=== PATIENT | female | born 1960 | race American Indian/Alaskan Native ===

== ENCOUNTER 2018-01-10 08:19 | Outpatient (CLI) | payer BC ==
--- NOTE | 2018-01-10 14:24 | Cat Scan Report ---
CT ABDOMEN AND PELVIS WITH CONTRAST: 01/10/18 08:19:00 CLINICAL: Pelvic mass. Status post supracervical hysterectomy. COMPARISON: 09/18/17 TECHNIQUE: Volumetric acquisition and 1.25 millimeter scan reconstructions after the uneventful intravenous injection of 100 cc Omnipaque 300. Consent was obtained prior to the administration of contrast. Oral contrast was also given. FINDINGS: Abdomen: Normal size kidneys with normal collecting systems. Normal ureters.Normal liver, bile ducts and gallbladder. Normal stomach, duodenum, pancreas and spleen. Normal aorta and inferior vena cava. Normal adrenal glands. The kidneys are normal except for a 2 cm right upper pole benign renal cyst. The renal collecting systems and ureters are nondilated. Normal small bowel.Normal ascending, transverse and descending colon. Normal appendix. No lymphadenopathy or ascites.No pneumoperitoneum. Pelvis: A stable oval cystic mass in the right upper pelvis inferior to the appendix measures 3.8 x 3.3 x 2.8 cm. No other pelvic mass is identified. The cervical remnant is to the left of midline and was described as a mass of the vaginal cuff on the last exam. No ovaries are identified. Normal urinary bladder. Normal rectum and sigmoid colon.. Bone windows demonstrate no bone lesion. IMPRESSION:1. Status post supracervical hysterectomy with a normal cervical remnant. 2. A stable 4 cm right upper pelvic benign cystic mass. 3. No other mass.
== END 2018-01-10 08:20 | disposition home or self-care (01) ==
LOC: SPVIMAG 08:19
PROVIDERS: ATTEND Obstetrics & Gynecology
DX: N28.1 Cyst of kidney, acquired (principal); N94.89 Other specified conditions associated with female genital organs and menstrual cycle; Z90.710 Acquired absence of both cervix and uterus
CPT/HCPCS: 74177; Q9967

== ENCOUNTER 2019-09-05 08:25 | Outpatient (CLI) | payer BC ==
--- NOTE | 2019-09-05 15:03 | Magnetic Resonance Report ---
BILATERAL BREAST MR WITHOUT AND WITH GADOLINIUM INDICATION: History of a left nipple discharge COMPARISONS: 07/08/2019 and 08/15/2019 mammograms TECHNIQUE: Axial 1.0 mm T1 without, axial high-resolution 2.0 mm T2 and axial 1.0 mm dynamic vibrant high-resolution postcontrast T1 fat saturation sequences on a 1.5 Shannon magnet. The examination was p erformed with an 8-channel dedicated [place] breast coil. Post-processing with CAD and subtraction was performed on an [employer] workstation. 16.0 cc of MultiHance was injected without incident for the c ontrast portion of the exam. Consent was obtained prior to the administration of the contrast. FINDINGS: RIGHT BREAST: Minimal background parenchymal enhancement. No mass or suspicious enhancement. No suspi cious lymph nodes. LEFT BREAST: Minimal background parenchymal enhancement. No mass or suspicious enhancement. No suspic ious lymph nodes. IMPRESSION: Negative study. Recommend routine mammographic screening. BI-RADS Category 1: Negative Signer Name: Sumeet Goodman MD Signed: 09/05/2019 2:59 PM Workstation Name: [id number]
== END 2019-09-05 08:26 | disposition home or self-care (01) ==
LOC: SPVIMAG 08:25
PROVIDERS: ATTEND Surgery
DX: N60.11 Diffuse cystic mastopathy of right breast (principal); N60.12 Diffuse cystic mastopathy of left breast; R92.2 Inconclusive mammogram; N64.4 Mastodynia
CPT/HCPCS: A9577; C8908; 77049

== ENCOUNTER 2021-05-04 12:25 | Outpatient (CLI) | payer BC ==
[2021-05-04 13:14] LABS: Blood Urea Nitrogen 9 mg/dL (7-17)
--- NOTE | 2021-05-04 14:23 | Cat Scan Report ---
CT ABDOMEN AND PELVIS WITH CONTRAST HISTORY: Abdominal mass. COMPARISON: 12/31/2017. TECHNIQUE: CT images of the abdomen and pelvis were obtained following administration of 100 mL of Om ni 300 intravenous contrast. Oral contrast was not administered which limits evaluation of the gastro intestinal tract. All CT scans at this location are performed using CT dose reduction for ALARA by ar ans of automated exposure control. CONTRAST: 100 ml of intravenous contrast administered. FINDINGS: Limited evaluation of the lung bases is unremarkable. Located within the anterior aspect of left hepatic lobe is a 1.4 x 1.2 cm which appears isodense on n oncontrast imaging. This demonstrates hyperintense enhancement compared to the liver parenchyma with partially circumscribed borders. This is not significantly changed from 01/10/2018 CT. Located within the posterior right mid kidney is a 2.1 x 1.3 cm low-density nonenhancing lesion which demonstrates appearance most suggestive of a cyst. This is slightly increased in size from prior manoj surement of 1.8 x 1.3 cm. Previously noted cystic lesion within the right superior pelvis is no longer identified. The spleen, pancreas, left kidney, gallbladder, and adrenal glands are unremarkable. Gastrointestina l tract shows no evidence of bowel wall thickening or pathologic distention. There are no pathologica lly enlarged lymph nodes. No free intraperitoneal gas or fluid. The appendix is visualized and is normal in appearance. Urinary bladder is unremarkable. Patient is s tatus post hysterectomy. Osseous structures show no evidence of acute fracture or aggressive osseous destructive lesion. Moder ate lower lumbar facet arthropathy at L5/S1 with suspected broad-based disc bulge at this level. IMPRESSION: Located within the anterior aspect of left hepatic lobe is a 1.4 x 1.2 cm enhancing mass. This is not significantly changed compared to 2018 CT. Relative long-term stability would support a benign etiol ogy. 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 Benign-appearing right mid renal cyst, not significantly changed. Previously noted cystic lesion within the right superior pelvis is no longer identified. Signer Name: Francis Freitas MD Signed: 05/04/2021 2:19 PM Workstation Name: [id number]
== END 2021-05-04 12:26 | disposition home or self-care (01) ==
LOC: CT 12:25
PROVIDERS: ATTEND Obstetrics & Gynecology
DX: R19.00 Intra-abdominal and pelvic swelling, mass and lump, unspecified site (principal)
CPT/HCPCS: 36415; 74178; 82565; 84520; Q9967

== ENCOUNTER 2021-07-13 08:42 | Outpatient (CLI) | payer BC ==
--- NOTE | 2021-07-13 11:03 | Mammography Report ---
DIGITAL SCREENING MAMMOGRAM WITH TOMOSYNTHESIS WITH CAD, 07/13/2021 CLINICAL INFORMATION / INDICATION: Routine Screening Mammography. TECHNIQUE: Digital bilateral 2D and 3D mammography with tomosynthesis was obtained in the craniocaud al and mediolateral oblique projections. Computer-Aided Detection (CAD) analysis was used for interp retation of this study. COMPARISON: 07/08/2019 FINDINGS: Breast Density: There are scattered areas of fibroglandular density. No dominant mass, suspicious calcifications, or architectural distortion in either breast. No interval change. IMPRESSION: No mammographic evidence of malignancy. Follow up recommendation: Routine yearly BI-RADS Category 1: Negative. A "normal" or negative report should not discourage follow up or biopsy of a clinically significant f inding. A written summary of these findings will be mailed to the patient. The patient will be entered into a mammography reporting system which will generate a reminder letter for the patient's next appointmen t at the appropriate interval. The [employer] recommends yearly mammograms starting at age 40 and continuing as l grace as a woman is in good health. Breast MRI is recommended for women with an approximate 20-25% or greater lifetime risk of breast cancer, including women with a strong family history of breast or ova susanne cancer or who have been treated for Hodgkin's disease. Signer Name: Dolly Tillman MD Signed: 07/13/2021 10:58 AM Workstation Name: [id number]
== END 2021-07-13 08:43 | disposition home or self-care (01) ==
LOC: SPVIMAG 08:42
PROVIDERS: ATTEND Surgery
DX: Z12.31 Encounter for screening mammogram for malignant neoplasm of breast (principal)
CPT/HCPCS: 77063; 77067

== ENCOUNTER 2022-07-28 13:00 | Outpatient (CLI) | payer BC ==
--- NOTE | 2022-07-28 18:18 | Mammography Report ---
DIGITAL SCREENING MAMMOGRAM WITH CAD, 07/28/2022 CLINICAL INFORMATION / INDICATION: Routine screening mammography. TECHNIQUE: Digital bilateral 2D mammography was obtained in the craniocaudal and mediolateral obliqu e projections. This examination was interpreted with the benefit of Computer-Aided Detection analysis . COMPARISON: 07/13/2021, 07/09/2020 FINDINGS: Breast Density: There are scattered areas of fibroglandular density. No dominant mass, suspicious calcifications, or architectural distortion in either breast. No interval change. IMPRESSION: No mammographic evidence of malignancy. Follow up recommendation: Routine yearly screening mammogram. BI-RADS Category 1: NEGATIVE A "normal" or negative report should not discourage follow up or biopsy of a clinically significant f inding. A written summary of these findings will be mailed to the patient. The patient will be entered into a mammography reporting system which will generate a reminder letter for the patient's next appointmen t at the appropriate interval. The [employer] recommends yearly mammograms starting at age 40 and continuing as l grace as a woman is in good health. Breast MRI is recommended for women with an approximate 20-25% or greater lifetime risk of breast cancer, including women with a strong family history of breast or ova susanne cancer or who have been treated for Hodgkin's disease. Signer Name: Dolly Tillman MD Signed: 07/28/2022 6:14 PM Workstation Name: [id number]
== END 2022-07-28 13:01 | disposition home or self-care (01) ==
LOC: SPVWC 13:00
PROVIDERS: ATTEND Surgery
DX: Z12.31 Encounter for screening mammogram for malignant neoplasm of breast (principal)
CPT/HCPCS: 77067